=== PATIENT | male | born 1950 | race Caucasian/White ===

== ENCOUNTER 2016-10-05 12:42 | Inpatient (IN) | payer MEDICARE, OTHER ==
[~2016-10-05] VITALS: Ht 200.7 cm; Wt 108.2 kg
[2016-10-05] VITALS (36 sets, daily range): BP systolic 102–175; BP diastolic 61–124; PULSE 51–130; RESP 13–33; TEMP 97.5–98.1; O2SAT 96–99
[~2016-10-05 12:42] MED LIST: ATOR40TA PO; DABI150 PO; GLUC1000 PO; HYDR-4197; LOSA100T PO; MELO15; METO50TA PO; NORC10TA2 PO; PANT40IN3 PO; XANA0.5T PO
--- NOTE | 2016-10-05 13:25 | PD ---
HPI Chief Complaint: Cardiac Complaint Time Seen by Provider: 13:07 Travel History International Travel<30 days: No Contact w/Intl Traveler<30days: No Traveled to known affect area: No History of Present Illness HPI This is a 66-year-old male who has a history of atrial fibrillation who presents to the emergency department with 2 weeks of increasing shortness of breath and increased lower extremity swelling. The patient reports that he usually is able to walk 6 blocks but now can't walk across his house without getting out of breath. He's been having more trouble sleeping at night due to shortness of breath. He says his legs are increasingly swollen. He's had a productive cough with clear sputum. His symptoms have been moderate, worsening , and constant. He saw Dr. Gavin his lamp stack developer today who sent him to the emergency department for evaluation. The patient doesn't take any diuretics and is on 50 mg twice a day for rate control for his atrial fibrillation. PFSH Past Medical History Arthritis: Yes Autoimmune Disease: No Anxiety: Yes Heart Rhythm Problems: Yes (This visit) Cardiovascular Problems: No High Cholesterol: Yes Endocrine: No Genitourinary: No Immune Disorder: No Musculoskeletal: Yes (pinched nerves, degenerative changes. ) Reproductive: Yes Respiratory: No Past Surgical History Abdominal Surgery: No Cardiac Surgery: No Endocrine Surgery: No Eye Surgery: Yes (right eye surgery) Genitourinary Surgery: No Gynecologic Surgery: No Oral Surgery: Yes (implants) Thoracic Surgery: No Social History Alcohol Use: No Tobacco Use: Yes (2ppd) Substance Use: No Allergies-Medications (Allergen,Severity, Reaction): Coded Allergies: No Known Allergies (Unverified , 10/05/16) Reported Meds & Prescriptions Reported Meds & Active Scripts Active Reported Vitamin D-3 (Cholecalciferol) 1,000 Unit Tab 2,000 Units PO HS Pradaxa (Dabigatran) 150 Mg Cap 150 Mg PO BID Pantoprazole (Pantoprazole Sodium) 40 Mg Tab 40 Mg PO DAILY Metoprolol Tartrate 50 Mg Tab 50 Mg PO BID Metformin (Metformin HCl) 850 Mg Tab 850 Mg PO BIDPC With meals Losartan (Losartan Potassium) 100 Mg Tab 100 Mg PO DAILY Hydrocodone-Acetaminophen 10-325 mg Tab 1 Tab PO Q6H PRN Atorvastatin (Atorvastatin Calcium) 40 Mg Tab 40 Mg PO HS Alprazolam 0.5 Mg Tab 0.5 Mg PO TID PRN Review of Systems Except as stated in HPI: all other systems reviewed are Neg Physical Exam Narrative GENERAL:Well appearing, no acute distress SKIN: Warm and dry. HEAD: Atraumatic. Normocephalic. EYES: Pupils equal and round. No injection or drainage. ENT: Moist mucous membranes. NECK: Trachea midline. Jugular venous distention. CARDIOVASCULAR: Regular rate and rhythm. No murmur appreciated. 2+ bilateral lower extremity pitting edema. RESPIRATORY: Clear to auscultation. Breath sounds equal bilaterally. GASTROINTESTINAL: Abdomen soft, non-tender, nondistended. MUSCULOSKELETAL: No obvious deformities. NEUROLOGICAL: Awake and alert. No obvious cranial nerve deficits. Moving all extremities. PSYCHIATRIC: Appropriate mood and affect; insight and judgment normal. Data Data Last Documented VS Vital Signs Date Time Temp Pulse Resp B/P Pulse Ox O2 Delivery O2 Flow Rate FiO2 10/05/16 13:44 106 20 99 Room Air 10/05/16 13:01 98.1 132/90 Orders Complete Blood Count With Diff (10/05/16 13:22) Comprehensive Metabolic Panel (10/05/16 13:22) B-Type Natriuretic Peptide (10/05/16 13:22) Act Partial Throm Time (Ptt) (10/05/16 13:22) Prothrombin Time / Inr (Pt) (10/05/16 13:22) Troponin I (10/05/16 13:22) Iv Access Insert/Monitor (10/05/16 13:22) Ecg Monitoring (10/05/16 13:22) Oximetry (10/05/16 13:22) Oxygen Administration (10/05/16 13:22) Chest, Single Ap (10/05/16 13:22) Sodium Chloride 0.9% Flush (Ns Flush) (10/05/16 13:30) Furosemide Inj (Lasix Inj) (10/05/16 13:30) Diltiazem Inj (Cardizem Inj) (10/05/16 13:30) Diltiazem (Cardizem) (10/05/16 14:45) Vital Signs (Adult) Q15MX4,Q4H (10/05/16 14:44) Deck Specialist / Telemetry JULIANNA.Q8H (10/05/16 14:44) Cardiac Rhythm JULIANNA.Q8H (10/05/16 14:44) ^ Notify Dr: Other (10/05/16 14:44) Diltiazem Inj (Cardizem Inj) (10/05/16 14:45) Admit Order (Ed Use Only) (10/05/16 ) Electrocardiogram (10/05/16 13:07) Labs Laboratory Tests Test 10/05/16 13:10 White Blood Count 9.1 TH/MM3 Red Blood Count 5.23 MIL/MM3 Hemoglobin 14.9 GM/DL Hematocrit 45.9 % Mean Corpuscular Volume 87.9 FL Mean Corpuscular Hemoglobin 28.6 PG Mean Corpuscular Hemoglobin 32.5 % Concent Red Cell Distribution Width 16.9 % Platelet Count 206 TH/MM3 Mean Platelet Volume 9.3 FL Neutrophils (%) (Auto) 66.0 % Lymphocytes (%) (Auto) 27.3 % Monocytes (%) (Auto) 5.2 % Eosinophils (%) (Auto) 1.0 % Basophils (%) (Auto) 0.5 % Neutrophils # (Auto) 6.0 TH/MM3 Lymphocytes # (Auto) 2.5 TH/MM3 Monocytes # (Auto) 0.5 TH/MM3 Eosinophils # (Auto) 0.1 TH/MM3 Basophils # (Auto) 0.0 TH/MM3 CBC Comment DIFF FINAL Differential Comment Prothrombin Time 15.4 SEC Prothromb Time International 1.4 RATIO Ratio Activated Partial 44.9 SEC Thromboplast Time Sodium Level 141 MEQ/L Potassium Level 4.2 MEQ/L Chloride Level 106 MEQ/L Carbon Dioxide Level 24.7 MEQ/L Anion Gap 10 MEQ/L Blood Urea Nitrogen 26 MG/DL Creatinine 1.50 MG/DL Estimat Glomerular Filtration 47 ML/MIN Rate Random Glucose 102 MG/DL Calcium Level 8.8 MG/DL Total Bilirubin 1.1 MG/DL Aspartate Amino Transf 26 U/L (AST/SGOT) Alanine Aminotransferase 37 U/L (ALT/SGPT) Alkaline Phosphatase 154 U/L Troponin I 0.03 NG/ML B-Type Natriuretic Peptide 959 PG/ML Total Protein 6.8 GM/DL Albumin 3.5 GM/DL MDM Medical Decision Making Medical Screen Exam Complete: Yes Emergency Medical Condition: Yes Interpretation(s) EKG: Atrial fibrillation with rapid ventricular response afebrile, tachycardic, normotensive no leukocytosis renal insufficiency troponin .03 bnp 959 Last 24 hours Impressions Chest X-Ray 10/05/16 1322 Signed Impressions: Service Date/Time: Wednesday, October 05, 2016 13:28 - CONCLUSION: Congestion and bibasilar airspace disease. Mild cardiomegaly. Wilbert Manning MD Differential Diagnosis atrial fibrillation with rvr, volume overload, myocardial infarction, pneumonia , sepsis, congestive heart failure Narrative Course This is a 66 year old male with a history of atrial fibrillation who presents to the emergency department with increasing shortness of breath and volume overload. Pt. was placed on a monitor and an IV was established. Labs were obtained which demonstrate mild renal insufficiency and congestive heart failure. CXR demonstrates volume overload. Pt. was given IV diltiazem and his heart rate improved. He was given 40 mg IV of Lasix and diuresed appropriately. Pt. will be admitted for continued rate control and diuresis. Physician Communication Physician Communication Discussed with Dr. Navarro Diagnosis Primary Impression: Atrial fibrillation with rapid ventricular response Additional Impression: Congestive heart failure Qualified Code: I50.9 - Acute on chronic congestive heart failure, unspecified congestive heart failure type Admitting Information Admitting Physician Requests: Admit Yazmin Hamm MD Oct 05, 2016 13:25
[2016-10-05] MEDS ORDERED: DILTIAZEM HCL 25 MG/5 ML VIAL IV ONE (13:30)
[2016-10-05] MEDS ORDERED: FUROSEMIDE 40 MG/4 ML VIAL IV PUSH ONE (13:30)
[2016-10-05] MEDS ORDERED: SODIUM CHLORIDE 0.9% FLUSH 5 ML FLUSH IVF PRN (13:30)
[2016-10-05] MEDS ORDERED: HYDR-3583 PO (13:44)
[2016-10-05] MEDS ORDERED: METO50TA PO (13:44)
[2016-10-05] MEDS ORDERED: VITA10003 PO (13:44)
[2016-10-05] MEDS ORDERED: LOSA100T PO (13:44)
[2016-10-05] MEDS ORDERED: ATOR40TA16 PO (13:44)
[2016-10-05] MEDS ORDERED: PRAD150C PO (13:44)
[2016-10-05] MEDS ORDERED: METF850T PO (13:44)
[2016-10-05] MEDS ORDERED: PANT40TA3 PO (13:44)
[2016-10-05] MEDS ORDERED: ALPR0.5T3 PO (13:44)
[2016-10-05 13:46] LABS: BASOPHIL % 0.5 % (0.0-2.0); EOSINOPHIL # 0.1 TH/MM3 (0-0.4); HEMATOCRIT 45.9 % (39.0-51.0); HEMO FLAGS DIFF FINAL; LYMPH % 27.3 % (9.0-44.0); LYMPHOCYTE # 2.5 TH/MM3 (1.0-4.8); MEAN CELL VOLUME 87.9 FL (80.0-100.0); MEAN CORPUSCULAR HEMOGLOBIN 28.6 PG (27.0-34.0); MEAN CORPUSCULAR HGB CONC 32.5 % (32.0-36.0); MONO % 5.2 % (0.0-8.0); PLATELET COUNT 206 TH/MM3 (150-450); RED BLOOD COUNT 5.23 MIL/MM3 (4.50-5.90); RED CELL DISTRIBUTION WIDTH 16.9 % (11.6-17.2); WHITE BLOOD COUNT 9.1 TH/MM3 (4.0-11.0)
--- NOTE | 2016-10-05 13:46 | RADHPO ---
EXAM DATE/TIME: 10/05/2016 13:28 [place] COMPARISON: CHEST SINGLE AP, April 18, 2016, 23:14. INDICATIONS : Short of breath MEDICAL HISTORY : None. SURGICAL HISTORY : None. ENCOUNTER: Initial ACUITY: 3 days PAIN SCORE: 3/10 LOCATION: Bilateral chest FINDINGS: Interstitial vascular prominence is identified. There is mild bibasilar airspace disease. Heart is moderately enlarged. CONCLUSION: Congestion and bibasilar airspace disease. Mild cardiomegaly. Wilbert Manning MD on October 05, 2016 at 13:38 Board Certified Radiologist. This report was verified electronically.
[2016-10-05 13:57] LABS: CHLORIDE 106 MEQ/L (98-107); POTASSIUM 4.2 MEQ/L (3.5-5.1); SODIUM (NA) 141 MEQ/L (136-145)
[2016-10-05 14:01] LABS: ANION GAP 10 MEQ/L (5-15); APTT (PATIENT) 44.9 SEC (24.3-30.1); BICARBONATE 24.7 MEQ/L (21.0-32.0); BLOOD UREA NITROGEN 26 MG/DL (7-18); INTERNATIONAL NORMALIZED RATIO 1.4 RATIO; PROTHROMBIN TIME - PATIENT 15.4 SEC (9.8-11.6)
[2016-10-05 14:04] LABS: ALT (GPT) 37 U/L (12-78); AST (GOT) 26 U/L (15-37); GLOMERULAR FILTRATION RATE 47 ML/MIN (>89)
[2016-10-05 14:06] LABS: TOTAL BILIRUBIN ADULT 1.1 MG/DL (0.2-1.0)
[2016-10-05 14:07] LABS: ALKALINE PHOSPHATASE 154 U/L (45-117)
[2016-10-05] MEDS ORDERED: DILTIAZEM HCL 30 MG TAB PO ONE (14:45)
[2016-10-05] MEDS ORDERED: DILTIAZEM INJ 125 MG in SODIUM CHLORIDE 0.9% INJ 100 ML IV SCH ×2 (14:45→16:30)
[2016-10-05] MEDS ORDERED: GLUCAGON 1 MG/ML VIAL OTHER PRN (16:30)
[2016-10-05] MEDS ORDERED: DEXTROSE 50% IN WATER 50 ML VIAL(D50) IV PUSH PRN (16:30)
[2016-10-05] MEDS ORDERED: SODIUM CHLORIDE 0.9% FLUSH 5 ML FLUSH FLUSH PRN (16:30)
--- NOTE | 2016-10-05 16:47 | HHI.HP ---
[facility] No Primary Care Physician Admission Diagnosis atrial fibrillation with rvr Diagnoses: (1) Atrial fibrillation with rapid ventricular response (2) Acute on chronic diastolic (congestive) heart failure Chief Complaint: Shortness of breath Travel History International Travel<30 Days: No Contact w/Intl Traveler <30 Da: No Traveled to Known Affected Are: No History of Present Illness 66-year-old male with a history of hypertension, A. fib, hyperlipidemia, and diabetes presented to the ED for evaluation of worsening symptoms of shortness of breath associated with bilateral lower extremity swelling. Patient was seen by his wireline operator today and was advised to seek medical attention to the ED. He reported that his symptoms started 2 weeks ago and was seen at urgent care she was prescribed Z-Matt and steroid dose for cold which he completed however had no improvement. He had at that time productive cough with clear sputum but no febrile episode. Patient smokes one pack per day has been smoking for the past 55 years. Currently denies any GI bleed, hemoptysis or hematuria. Review of Systems Other 12 systems reviewed and are negative except for the ones mentioned in history of present illness Past Family Social History Past Medical History Hypertension A. fib Hyperlipidemia Diabetes CHF Past Surgical History Hand surgery Elbow surgery Shoulder surgery Bilateral knee surgery Reported Medications Vitamin D-3 (Cholecalciferol) 1,000 Unit Tab 2,000 Units PO HS Pradaxa (Dabigatran) 150 Mg Cap 150 Mg PO BID Pantoprazole (Pantoprazole Sodium) 40 Mg Tab 40 Mg PO DAILY Metoprolol Tartrate 50 Mg Tab 50 Mg PO BID Metformin (Metformin HCl) 850 Mg Tab 850 Mg PO BIDPC With meals Losartan (Losartan Potassium) 100 Mg Tab 100 Mg PO DAILY Hydrocodone-Acetaminophen 10-325 mg Tab 1 Tab PO Q6H PRN Atorvastatin (Atorvastatin Calcium) 40 Mg Tab 40 Mg PO HS Alprazolam 0.5 Mg Tab 0.5 Mg PO TID PRN Allergies: Coded Allergies: No Known Allergies (Unverified , 10/05/16) Family History Family history of cancers Social History Tobacco use: 2-3 ppd Alcohol use: History of abuse, denies current use Illicit drug use: Marijuana use Physical Exam Vital Signs Vital Signs Date Time Temp Pulse Resp B/P Pulse Ox O2 Delivery O2 Flow Rate FiO2 10/05/16 15:06 115 20 102/105 97 Room Air 10/05/16 13:44 106 20 99 Room Air 10/05/16 13:44 99 Room Air 10/05/16 13:44 20 99 Room Air 10/05/16 13:01 98.1 130 18 132/90 99 Physical Exam GENERAL: This is a well-nourished, well-developed patient, in no apparent distress. SKIN: No rashes, ecchymoses or lesions. Cool and dry. HEAD: Atraumatic. Normocephalic. No temporal or scalp tenderness. EYES: Pupils equal round and reactive. Extraocular motions intact. No scleral icterus. No injection or drainage. ENT: Nose without bleeding, purulent drainage or septal hematoma. Throat without erythema, tonsillar hypertrophy or exudate. Uvula midline. Airway patent. NECK: Trachea midline. No JVD or lymphadenopathy. Supple, nontender, no meningeal signs. CARDIOVASCULAR: Irregular Regular rate and rhythm without murmurs, gallops, or rubs. RESPIRATORY: Clear to auscultation. Breath sounds equal bilaterally. No wheezes , rales, or rhonchi. GASTROINTESTINAL: Abdomen soft, non-tender, nondistended. No hepato-splenomegaly , or palpable masses. No guarding. MUSCULOSKELETAL: Extremities without clubbing, cyanosis; +1 edema BLE. No joint tenderness, effusion, or edema noted. No calf tenderness. Negative Homans sign bilaterally. NEUROLOGICAL: Awake and alert. Cranial nerves II through XII intact. Motor and sensory grossly within normal limits. Five out of 5 muscle strength in all muscle groups. Normal speech. Laboratory Laboratory Tests Test 10/05/16 13:10 White Blood Count 9.1 Red Blood Count 5.23 Hemoglobin 14.9 Hematocrit 45.9 Mean Corpuscular Volume 87.9 Mean Corpuscular Hemoglobin 28.6 Mean Corpuscular Hemoglobin 32.5 Concent Red Cell Distribution Width 16.9 Platelet Count 206 Mean Platelet Volume 9.3 Neutrophils (%) (Auto) 66.0 Lymphocytes (%) (Auto) 27.3 Monocytes (%) (Auto) 5.2 Eosinophils (%) (Auto) 1.0 Basophils (%) (Auto) 0.5 Neutrophils # (Auto) 6.0 Lymphocytes # (Auto) 2.5 Monocytes # (Auto) 0.5 Eosinophils # (Auto) 0.1 Basophils # (Auto) 0.0 CBC Comment DIFF FINAL Differential Comment Prothrombin Time 15.4 Prothromb Time International 1.4 Ratio Activated Partial 44.9 Thromboplast Time Sodium Level 141 Potassium Level 4.2 Chloride Level 106 Carbon Dioxide Level 24.7 Anion Gap 10 Blood Urea Nitrogen 26 Creatinine 1.50 Estimat Glomerular Filtration 47 Rate Random Glucose 102 Calcium Level 8.8 Total Bilirubin 1.1 Aspartate Amino Transf 26 (AST/SGOT) Alanine Aminotransferase 37 (ALT/SGPT) Alkaline Phosphatase 154 Troponin I 0.03 B-Type Natriuretic Peptide 959 Total Protein 6.8 Albumin 3.5 Result Diagram: 10/05/16 1310 10/05/16 1310 Imaging Last Impressions Chest X-Ray 10/05/16 1322 Signed Impressions: Service Date/Time: Wednesday, October 05, 2016 13:28 - CONCLUSION: Congestion and bibasilar airspace disease. Mild cardiomegaly. Wilbert Manning MD Assessment and Plan Problem List: (1) Atrial fibrillation with rapid ventricular response ICD Code: I48.91 Status: Acute (2) Acute on chronic diastolic (congestive) heart failure ICD Code: I50.33 Status: Acute Assessment and Plan 66-year-old male with Atrial fibrillation with rapid ventricular response: Initial cardiac enzymes negative, continue ACS ruled out per protocol. Currently on Cardizem drip pending evaluation from cardiology. Last 2-D echo with EF 50-55% (04/19/16) pending repeat 2-D echo. Resume Pradaxa and continue treatment for hypothyroidism. Will admit patient ICU Acute on chronic diastolic CHF: BNP 959, start diuretic Lasix 40 mg IV twice a day any further evaluation from cardiology.Last 2-D echo with EF 50-55% (04/19/16 ) pending repeat 2-D echo. CHF education, strict I's and O's Hypertension, hyperlipidemia, anxiety: Resume outpatient medications Diabetes type 2: Last A1c 5.7, repeat HgA1c and resume oral hypoglycemic agent and start Loestrin sliding scale Chest x-ray finding of bibasilar airspace disease: Currently afebrile and WBC wnl; patient completed Z-Pack as well as Medrol dose pack therefore will hold on starting any antibiotic. Reassess clinical course in a.m. DVT prophylaxis: Pradaxa Code Status Full code Discussed Condition With Patient, ED physician Physician Certification 2 Midnight Certification Type: Admission for Inpatient Services Order for Inpatient Services The services are ordered in accordance with Medicare regulations or non- Medicare payer requirements, as applicable. In the case of services not specified as inpatient-only, they are appropriately provided as inpatient services in accordance with the 2-midnight benchmark. Estimated LOS (days): 2 days is the estimated time the patient will need to remain in the hospital, assuming treatment plan goals are met and no additional complications. Post-Hospital Plan: Not yet determined Deo Navarro MD Oct 05, 2016 16:47
[2016-10-05] MEDS: POTASSIUM CHLORIDE 20 MEQ CONTROLLED RELEASE TAB PO SCH (17:48)
[2016-10-05] MEDS: metFORMIN HCL 850 MG TAB PO SCH (17:48)
[2016-10-05] MEDS: FUROSEMIDE 40 MG/4 ML VIAL IV PUSH SCH (17:48)
[2016-10-05] MEDS: ALPRAZolam 0.5 MG TAB PO PRN (17:52)
[2016-10-05] MEDS: NICOTINE 21 MG/24 HR PATCH TD SCH (17:53)
[2016-10-05] MEDS: METOPROLOL TARTRATE 50 MG TAB PO SCH (20:06)
[2016-10-05] MEDS: ATORVASTATIN 40 MG TAB PO SCH (20:07)
[2016-10-05] MEDS: DABIGATRAN ETEXILATE 150 MG CAP PO SCH (20:07)
[2016-10-05] MEDS: SODIUM CHLORIDE 0.9% FLUSH 5 ML FLUSH FLUSH SCH (20:07)
[2016-10-05] MEDS: INSULIN ASPART SUPPLEMENTAL SCALE SQ SCH (20:09)
[2016-10-05] MEDS ORDERED: ACETAMINOPHEN/HYDROcodone 325 MG/10 MG TAB PO ONE (20:45)
[2016-10-06] VITALS (18 sets, daily range): BP systolic 108–142; BP diastolic 63–98; PULSE 54–146; RESP 12–28; TEMP 97–97.8; O2SAT 95–98
[2016-10-06 05:22] LABS: HEMATOCRIT 44.4 % (39.0-51.0); MEAN CELL VOLUME 88.6 FL (80.0-100.0); MEAN CORPUSCULAR HEMOGLOBIN 28.1 PG (27.0-34.0); MEAN CORPUSCULAR HGB CONC 31.7 % (32.0-36.0); PLATELET COUNT 186 TH/MM3 (150-450); RED BLOOD COUNT 5.01 MIL/MM3 (4.50-5.90); RED CELL DISTRIBUTION WIDTH 16.7 % (11.6-17.2); WHITE BLOOD COUNT 8.2 TH/MM3 (4.0-11.0)
[2016-10-06 05:34] LABS: POTASSIUM 3.6 MEQ/L (3.5-5.1)
[2016-10-06 05:35] LABS: REVIEW FLAG FINAL
[2016-10-06] MEDS: INSULIN ASPART SUPPLEMENTAL SCALE SQ SCH ×4 (06:07→21:00)
[2016-10-06] MEDS: ACETAMINOPHEN/HYDROcodone 325 MG/10 MG TAB PO PRN ×3 (09:24→22:00)
[2016-10-06] MEDS: SODIUM CHLORIDE 0.9% FLUSH 5 ML FLUSH FLUSH SCH ×2 (09:27→20:59)
[2016-10-06] MEDS: FUROSEMIDE 40 MG/4 ML VIAL IV PUSH SCH ×2 (09:28→17:38)
[2016-10-06] MEDS: POTASSIUM CHLORIDE 20 MEQ CONTROLLED RELEASE TAB PO SCH ×2 (09:28→17:38)
[2016-10-06] MEDS: NICOTINE 21 MG/24 HR PATCH TD SCH (09:28)
[2016-10-06] MEDS: metFORMIN HCL 850 MG TAB PO SCH ×2 (09:28→17:38)
[2016-10-06] MEDS: DABIGATRAN ETEXILATE 150 MG CAP PO SCH ×2 (09:29→20:59)
[2016-10-06] MEDS: PANTOPRAZOLE SOD 40 MG DELAYED RELEASE TAB PO SCH (09:29)
[2016-10-06] MEDS: METOPROLOL TARTRATE 50 MG TAB PO SCH ×2 (09:29→21:59)
[2016-10-06] MEDS: LOSARTAN 50 MG TAB PO SCH (09:29)
[2016-10-06] MEDS: ALPRAZolam 0.5 MG TAB PO PRN ×2 (09:45→20:59)
[2016-10-06] MEDS ORDERED: PNEUMOCOCCAL POLYVALENT INJ 25 MCG/0.5 ML SYR IM ONE (10:00)
--- NOTE | 2016-10-06 12:47 | MB ---
cc: RADHA GAVIN MD DATE OF CONSULTATION: 10/06/2016 REASON FOR CONSULTATION Atrial fibrillation and CHF. HISTORY OF PRESENT ILLNESS Mr. Triana is a 66-year-old man who does have a history of atrial fibrillation and non-ST elevation DE. The patient had 2 weeks ago some shortness of breath and cough. He was treated at an urgent care and prescribed a Z-Matt and some steroids for cold/ bronchitis. He initially started to improve but then has had progressive symptoms of edema and shortness of breath. He does continue to smoke. The patient reports that he has had to sleep sitting up. The patient was seen by me in the office yesterday with progressive symptoms. He was found to be in atrial fibrillation, RVR and had marked edema. He was thus referred to the emergency room. PAST MEDICAL HISTORY Past medical history significant for: 1. Hypertension. 2. Hyperlipidemia. 3. Diabetes. 4. Atrial fibrillation. 5. CHF. OUTPATIENT MEDICATIONS Included: 1. Pradaxa. 2. Metoprolol. 3. Metformin. 4. Losartan. 5. Atorvastatin. 6. Alprazolam. ALLERGIES NO KNOWN DRUG ALLERGIES. FAMILY HISTORY Negative for CAD. SOCIAL HISTORY The patient does continue to smoke two packs a day. REVIEW OF SYSTEMS Except as mentioned in the HPI, all 12 systems are negative. PHYSICAL EXAMINATION VITAL SIGNS: Currently are 80, 20, 142/90. GENERAL: He is a well-appearing man who is in no apparent distress. NECK: His neck is free from JVD sitting. LUNGS: The lungs have bibasilar rales. CARDIOVASCULAR: He has an irregularly, irregular rhythm. No rubs or gallops appreciated. ABDOMEN: The abdomen is soft. EXTREMITIES: 1+ edema. LABORATORY FINDINGS Significant for a creatinine of 1.4. Serial troponins of 0.03/ 0.02/0.02. BNP is 959. CHEST X-RAY Shows congestion and bibasilar air space disease. EKG Shows atrial fibrillation. IMPRESSION Atrial fibrillation - the patient did have some RVR. His rate is improved essentially on his outpatient medications. He does get a bit tachycardic with standing and ambulating but then the heart rate responds pretty quickly to come back down. I suspect that his high heart rate was related to his decompensated CHF. At this point I would continue him with the IV Lasix as he is responding nicely to this and still has a fair amount of both edema and basilar rales. I would continue the patient on the Pradaxa for a CHADS vasc score of 4. Cardiomyopathy - on the patient's last visit his EF was 40% by nuc and 50% by echo. He is responding today like he does have a systolic failure. In any case an echo is pending and we will continue him with his present medications. CHF - the patient is having an acute on chronic presentation. We will continue with medical management. Of note, he did have a nonischemic nuclear stress test in the fall. Radha Gavin M.D. [place]/MICKI /12:13 PM /12:29 PM
--- NOTE | 2016-10-06 13:04 | EC ---
Study Study Date:10/06/2016 STUDY CONCLUSIONS SUMMARY - Left ventricle: The cavity size was dilated. Wall thickness was increased increased in a pattern of mild to moderate LVH. Systolic function was moderately reduced by visual assessment. The estimated ejection fraction was in the range of 35% to 45%. Wall motion was normal; there were no regional wall motion abnormalities. - Aortic valve: Mild regurgitation. Valve area: 2.51cm^2 (Vmax). - Left atrium: The atrium was mildly dilated. - Right atrium: The atrium was mildly dilated. - Tricuspid valve: Mild regurgitation. If LV function is below 40, please consider prescribing an ACEI or ARB or document rationale for non-use. PROCEDURE DATA STUDY STATUS: Elective. Procedure: Transthoracic echocardiography. Image quality was good. Scanning was performed from the parasternal, apical, and subcostal acoustic windows. Study completion: The patient tolerated the procedure well. Transthoracic echocardiography. M-mode, complete 2D, complete spectral Doppler, and color Doppler. Height: Height: 79in. Weight: Weight: 278.4lb. Body mass index: BMI: 31.4kg/m^2. Body surface area: BSA: 2.62m^2. Patient status: Inpatient. CARDIAC ANATOMY LEFT VENTRICLE: Poorly visualized. The cavity size was dilated. Wall thickness was increased increased in a pattern of mild to moderate LVH. Systolic function was moderately reduced by visual assessment. The estimated ejection fraction was in the range of 35% to 45%. Wall motion was normal; there were no regional wall motion abnormalities. AORTIC VALVE: Trileaflet; normal thickness leaflets. Doppler: Transvalvular velocity was within the normal range. There was no stenosis. Mild regurgitation. Valve area: 2.51cm^2 (Vmax). Indexed valve area: 0.96cm^2/m^2 (Vmax). AORTA: Aortic root: The aortic root was normal in size. MITRAL VALVE: Structurally normal valve. Doppler: Transvalvular velocity was within the normal range. There was no evidence for stenosis. No regurgitation. Valve area by pressure half-time: 5cm^2. Indexed valve area by pressure half-time: 1.91cm^2/m^2. LEFT ATRIUM: The atrium was mildly dilated. RIGHT VENTRICLE: The cavity size was at the upper limits of normal. Wall thickness was normal. PULMONIC VALVE: Doppler: Transvalvular velocity was within the normal range. There was no evidence for stenosis. No regurgitation. TRICUSPID VALVE: Structurally normal valve. Doppler: Transvalvular velocity was within the normal range. Mild regurgitation. Peak gradient: 30mm Hg (D). PULMONARY ARTERY: The main pulmonary artery was normal-sized. Systolic pressure was within the normal range. RIGHT ATRIUM: The atrium was mildly dilated. PERICARDIUM: There was no pericardial effusion. SYSTEMIC VEINS: Inferior vena cava: The vessel was normal in size. Patient weight: 278.4lb _Ejection fraction:_ 65-75% _Fractional shortening:_ 32% up to 5Kg 5-11.5Kg 11.6-22.9Kg 23-45Kg 45-57Kg Aortic Root 7-13 <17 13-22 17-27 17-27 LA diam 6-13 <23 24-38 33-47 37-40 RVID 10-17 7-15 7-15 7-18 8-17 LVIDd 12-22 <32 24-38 33-47 37-40 LVPW 2-4 3-6 5-7 6-8 7-8 IVS 2-4 3-6 5-7 6-8 7-8 BASIC MEASUREMENTS ADULT NORMAL Left ventricle LV internal dimension, ED, chordal *16.9 mm 43-52 level, PLAX LV internal dimension, ES, chordal *46.9 mm 23-38 level, PLAX Fractional shortening, chordal level, 178 % >29 PLAX LV posterior wall thickness, ED 16.8 mm IVS/LVPW ratio, ED 0.99 <1.3 Volume, ED, MOD, 1-plane 129 ml Volume, ES, MOD, 1-plane 90 ml Ejection fraction, MOD, 1-plane 30 % Stroke volume, MOD, 1-plane 39 ml Volume index, ED, MOD, 1-plane 49 ml/m^2 Volume index, ES, MOD, 1-plane 34 ml/m^2 Stroke index, MOD, 1-plane 14.9 ml/m^2 Ventricular septum Septal thickness, ED 16.7 mm Aortic valve Leaflet separation 21 mm 15-26 Left atrium Anterior-posterior dimension 40 mm Anterior-posterior dimension index 1.53 cm/m^2 <2.2 Right ventricle RV internal dimension, ED, PLAX 32.1 mm 19-38 BASIC MEASUREMENTS ADULT NORMAL Aortic valve Leaflet separation 21 mm 15-26 Aorta Root diameter, ED 36 mm 20-37 DOPPLER MEASUREMENTS ADULT NORMAL Aortic valve Peak velocity, S 130 cm/s Valve area, Vmax 2.51 cm^2 Valve area index, Vmax 0.96 cm^2/m^2 Regurgitant velocity, ED 407 cm/s Regurgitant deceleration 1930 cm/s^2 Regurgitant pressure half-time 618 ms Regurgitant gradient, ED 66 mm Hg Mitral valve Peak E-wave velocity 65.6 cm/s Peak A-wave velocity 59.7 cm/s Pressure half-time 44 ms Peak E/A ratio 1.1 Valve area, pressure half-time 5 cm^2 Valve area index, pressure half-time 1.91 cm^2/m^2 Tricuspid valve Peak gradient, D 30 mm Hg Maximal inflow velocity 274 cm/s Systemic veins Estimated CVP 10 mm Hg Pulmonic valve Peak velocity, S 82.8 cm/s LEGEND: Mean values are shown as u=mean value. Asterisk (*) peterson values outside specified normal range. Prepared and signed by Enrico Frost [id number]
--- NOTE | 2016-10-06 14:07 | EKG ---
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
--- NOTE | 2016-10-06 15:03 | HHI.PR ---
Subjective Remarks Patient sitting on the chair, he denies pain at the moment but he stated "I will have it soon "when I said where he said his neck, his elbows, his knees, and his hips, obvious with his chronic pain, patient denied any chest tightness , short of breath, lightheadedness or dizziness He was just seen by Dr. Gavin and he told me she wasn't happy about him drinking large amount of green tea, he asked me if fluid retention is due to metformin, totally ignoring the fact that he is drinking large cans of ice tea Is cussed with the nurse patient still having tachycardia with mobilization Objective Vitals Vital Signs Date Time Temp Pulse Resp B/P Pulse Ox O2 Delivery O2 Flow Rate FiO2 10/06/16 12:00 90 28 123/92 10/06/16 10:30 97.6 140 28 142/90 10/06/16 10:00 146 28 10/06/16 08:00 114 10/06/16 07:30 98 15 134/89 10/06/16 03:35 97.8 66 12 136/89 97 10/06/16 01:45 64 13 121/74 10/06/16 01:30 70 17 126/67 10/06/16 01:15 72 22 138/98 10/06/16 01:00 60 12 117/69 10/06/16 00:45 54 13 108/63 10/06/16 00:30 62 18 113/66 10/06/16 00:15 58 12 116/63 10/06/16 00:00 68 20 118/72 98 10/05/16 23:30 60 24 112/88 10/05/16 23:15 54 19 112/68 10/05/16 23:00 51 10/05/16 23:00 56 17 103/62 10/05/16 22:45 58 13 107/67 10/05/16 22:30 60 22 112/71 10/05/16 22:15 76 19 138/96 10/05/16 22:00 60 24 115/62 10/05/16 21:45 60 28 108/61 10/05/16 21:30 72 24 120/73 10/05/16 21:15 72 18 140/76 96 10/05/16 21:00 92 27 114/93 96 10/05/16 20:45 74 24 156/87 96 10/05/16 20:30 90 27 160/123 97 10/05/16 20:15 86 28 164/89 97 10/05/16 20:06 130 30 168/89 97 10/05/16 20:00 97.5 102 23 168/89 97 10/05/16 19:45 102 28 175/124 98 10/05/16 19:30 94 33 156/84 98 10/05/16 19:28 97 10/05/16 19:15 82 24 136/81 98 10/05/16 19:00 84 27 148/97 98 10/05/16 18:23 97 21 10/05/16 18:00 84 10/05/16 17:45 104 10/05/16 17:30 88 10/05/16 17:15 116 10/05/16 17:00 114 10/05/16 16:51 81 10/05/16 16:49 98 10/05/16 16:45 124 10/05/16 16:30 100 10/05/16 16:15 106 10/05/16 16:12 118 10/05/16 15:06 115 20 102/105 97 Room Air I/O 10/05/16 10/05/16 10/05/16 10/06/16 10/06/16 10/06/16 07:00 15:00 23:00 07:00 15:00 23:00 Intake Total 394 ml 720 ml 680 ml Output Total 4700 ml 1675 ml 1150 ml Balance -4306 ml -955 ml -470 ml Intake Oral 360 ml 720 ml 680 ml IV Total 34 ml 0 ml Output Urine Total 4700 ml 1675 ml 1150 ml # Bowel Movements 0 0 Result Diagram: 10/06/16 0427 10/06/16 0427 Objective Remarks GENERAL: This is a well-nourished, well-developed patient, in no apparent distress. CARDIOVASCULAR: Regular rate and irregular rhythm without murmurs, gallops, or rubs. RESPIRATORY: Clear to auscultation. Breath sounds equal bilaterally. No wheezes , rales, or rhonchi. GASTROINTESTINAL: Abdomen soft, non-tender, nondistended. Normal, active bowel sounds MUSCULOSKELETAL: Extremities without clubbing, cyanosis, or edema. NEURO: Alert & Oriented x4 to person, place, time, situation. Moves all ext x4 A/P Problem List: (1) Atrial fibrillation with rapid ventricular response ICD Code: I48.91 Status: Acute (2) Acute on chronic diastolic (congestive) heart failure ICD Code: I50.33 Status: Acute Assessment and Plan 66-year-old male with Atrial fibrillation with rapid ventricular response: Initial cardiac enzymes negative, continue ACS ruled out per protocol. Status post Cardizem drip , heart rate is controlled on Lopressor while resting however he goes above 100 on ambulation, appreciate cardiology consultation. Last 2-D echo with EF 50-55 % (04/19/16) pending repeat 2-D echo. Resume Pradaxa and continue treatment for hypothyroidism. Further recommendation per cardiology Acute on chronic diastolic CHF: BNP 959, Lasix 40 mg IV twice a day .Last 2-D echo with EF 50-55% (04/19/16) pending repeat 2-D echo. I reinforced CHF education, strict I's and O's fluid restriction 1500 cc of a Hypertension, hyperlipidemia, anxiety: Resume outpatient medications Diabetes type 2: Last A1c 5.7, repeat HgA1c and resume oral hypoglycemic agent and start ISS Chest x-ray showing congestion with bibasilar airspace disease: Currently afebrile and WBC wnl; patient completed Z-Pack as well as Medrol dose pack therefore will hold on starting any antibiotic. Reassess clinical course DVT prophylaxis: Lakshmi Zelaya MD Oct 06, 2016 15:03
[2016-10-06] MEDS: ATORVASTATIN 40 MG TAB PO SCH (20:59)
[2016-10-07] VITALS (9 sets, daily range): BP systolic 104–144; BP diastolic 60–87; PULSE 76–126; RESP 14–28; TEMP 97.2–97.7; O2SAT 94–97
[2016-10-07] MEDS: ACETAMINOPHEN/HYDROcodone 325 MG/10 MG TAB PO PRN ×3 (06:50→20:51)
[2016-10-07] MEDS: INSULIN ASPART SUPPLEMENTAL SCALE SQ SCH ×4 (06:50→20:51)
[2016-10-07] MEDS: ALPRAZolam 0.5 MG TAB PO PRN ×3 (06:50→20:51)
[2016-10-07] MEDS: POTASSIUM CHLORIDE 20 MEQ CONTROLLED RELEASE TAB PO SCH ×2 (08:26→17:50)
[2016-10-07] MEDS: PANTOPRAZOLE SOD 40 MG DELAYED RELEASE TAB PO SCH (08:26)
[2016-10-07] MEDS: SODIUM CHLORIDE 0.9% FLUSH 5 ML FLUSH FLUSH SCH ×2 (08:26→20:48)
[2016-10-07] MEDS: DABIGATRAN ETEXILATE 150 MG CAP PO SCH ×2 (08:26→20:51)
[2016-10-07] MEDS: LOSARTAN 50 MG TAB PO SCH (08:26)
[2016-10-07] MEDS: NICOTINE 21 MG/24 HR PATCH TD SCH (08:27)
[2016-10-07] MEDS: FUROSEMIDE 40 MG/4 ML VIAL IV PUSH SCH ×2 (08:27→17:51)
[2016-10-07] MEDS: METOPROLOL TARTRATE 50 MG TAB PO SCH ×2 (08:27→20:51)
[2016-10-07] MEDS: metFORMIN HCL 850 MG TAB PO SCH ×2 (08:32→17:50)
[2016-10-07] MEDS ORDERED: METOPROLOL TARTRATE 50 MG TAB PO SCH (09:00)
[2016-10-07] MEDS ORDERED: LOSARTAN 50 MG TAB PO SCH (09:00)
--- NOTE | 2016-10-07 10:11 | HHI.PR ---
Subjective Remarks Patient seen and examined today with Dr. Lundberg. Patient had multiple questions concerning fluid intake, wbif-lox-gyfucpi medication, travel recommendations. Patient's heart rates still very labile. We'll need to discuss with cardiology for further recommendations. Objective Vitals Vital Signs Date Time Temp Pulse Resp B/P Pulse Ox O2 Delivery O2 Flow Rate FiO2 10/07/16 07:40 97 21 10/07/16 04:00 97.5 78 16 109/87 94 10/07/16 00:00 97.7 102 14 144/82 94 10/07/16 00:00 114 10/06/16 23:00 18 10/06/16 20:00 97.4 112 21 117/93 98 10/06/16 19:47 96 10/06/16 15:55 108 10/06/16 15:46 97.0 102 25 108/72 95 10/06/16 12:00 95 10/06/16 12:00 90 28 123/92 10/06/16 10:30 97.6 140 28 142/90 10/06/16 10:00 146 28 I/O 10/06/16 10/06/16 10/06/16 10/07/16 10/07/16 10/07/16 07:00 15:00 23:00 07:00 15:00 23:00 Intake Total 720 ml 680 ml 1320 ml 0 ml Output Total 1675 ml 1150 ml 2725 ml 600 ml Balance -955 ml -470 ml -1405 ml -600 ml Intake Oral 720 ml 680 ml 1320 ml 0 ml IV Total 0 ml 0 ml Output Urine Total 1675 ml 1150 ml 2725 ml 600 ml # Bowel Movements 0 0 0 Result Diagram: 10/06/16 0427 10/06/16 0427 Objective Remarks GENERAL: Well-developed, well-nourished, in no acute distress. alert and orientated HEENT: Head is normocephalic without any lesions or masses noted. Facial features are symmetric. Eyes: Extraocular muscles are intact. Conjunctivae were clear. NECK: Supple without any masses. Trachea midline no deviation. No JVD, CARDIAC: Irregular rhythm, irregular rate. S1/S2 are heard. No murmurs gallops or rubs. LUNGS: Clear to auscultation bilaterally. No wheeze, rhonchi or rales. No use of accessory muscles on inspiration or expiration. ABDOMEN: Soft, nontender. Nondistended. Bowel sounds heard in all 4 quadrants. No organomegaly or masses. Negative rebound, negative guarding EXTREMITIES: No edema, pulses are equal bilaterally. No cyanosis or clubbing NEUROLOGY: Mood and affect appear appropriate. Cranial nerves II through XII grossly intact. Moving all extremities, speech is clear Urinary Catheter: No Vascular Central Line Catheter: No A/P Assessment and Plan Atrial fibrillation with rapid ventricular response: Cardiac enzymes negative, Status post Cardizem drip , heart rate is mildly controlled on Lopressor. [place] [address]. Cardiology consultation has been performed. Last 2-D echo with EF 50-55% (04/19/16). Repeat echocardiogram indicates systolic function was moderately reduced ejection fraction 3545 percent. Continue Pradaxa and continue treatment for hypothyroidism. Discussed with cardiology this morning. Patient's condition likely related to noncompliance. Cardiology and myself for counseled patient on his fluid intake. Cardiology recommended increasing to Lopressor 100 mg twice daily for better rate control. Acute on chronic systolic/diastolic congestive heart failure: BNP 959, change to Lasix 40 mg by mouth daily. I patient counseled extensively on fluid restriction. According to documentation patient has had close to 7.6 L negative fluid status. Counseled patient on compression stockings Hypertension, hyperlipidemia, anxiety: Losartan 100 mg was continued, after discussion with cardiology will decrease to losartan 25 mg because of the increase to Lopressor. Diabetes type 2: Last A1c 5.7, oral hypoglycemic agent was resumed, however patient is refusing at this time. Continue Accu-Cheks with sliding scale insulin. Patient has not required any insulin since being in the hospital. Chest x-ray showing congestion with bibasilar airspace disease: Currently afebrile and WBC wnl; patient completed Z-Pack as well as Medrol dose pack therefore will hold on starting any antibiotic. Reassess clinical course DVT prophylaxis: Pradaxa Written by Ashwin Delacruz PA-C, acting as scribe for Dr. Lundberg on 10/07/16 at 1045. The documentation accurately reflects the work and decisions performed face-to- face by Dr. Lundberg on 10/07/16 at 1045. Discharge Planning Discharge planning when heart rate controlled after medication adjustment. Could be as early as late this afternoon and hopefully by tomorrow morning Ashwin Delacruz Oct 07, 2016 10:11 Lakshmi Lundberg MD Oct 07, 2016 18:11
[2016-10-07] MEDS ORDERED: METOPROLOL TARTRATE 50 MG TAB PO ONE (12:00)
[2016-10-07] MEDS ORDERED: CALCIUM CARBONATE 500 MG CHEWABLE TAB CHEW PRN (14:00)
[2016-10-07] MEDS: ATORVASTATIN 40 MG TAB PO SCH (20:51)
[2016-10-08] VITALS: BP 92/55; PULSE 77; RESP 16; TEMP 97.2; O2SAT 94
[2016-10-08] MEDS: ALPRAZolam 0.5 MG TAB PO PRN ×2 (03:57→09:56)
[2016-10-08] MEDS: ACETAMINOPHEN/HYDROcodone 325 MG/10 MG TAB PO PRN ×2 (03:57→09:57)
[2016-10-08 04:00] VITALS: BP 119/75; PULSE 74; RESP 17; TEMP 97.8; O2SAT 94
[2016-10-08] MEDS: INSULIN ASPART SUPPLEMENTAL SCALE SQ SCH ×2 (05:33→11:00)
[2016-10-08 07:53] VITALS: BP 117/80; PULSE 98; RESP 18; TEMP 97.6; O2SAT 95
[2016-10-08 08:00] VITALS: PULSE 100
[2016-10-08] MEDS: DABIGATRAN ETEXILATE 150 MG CAP PO SCH (08:37)
[2016-10-08] MEDS: SODIUM CHLORIDE 0.9% FLUSH 5 ML FLUSH FLUSH SCH (08:37)
[2016-10-08] MEDS: POTASSIUM CHLORIDE 20 MEQ CONTROLLED RELEASE TAB PO SCH (08:38)
[2016-10-08] MEDS: metFORMIN HCL 850 MG TAB PO SCH (08:38)
[2016-10-08] MEDS: FUROSEMIDE 40 MG/4 ML VIAL IV PUSH SCH (08:38)
[2016-10-08] MEDS: PANTOPRAZOLE SOD 40 MG DELAYED RELEASE TAB PO SCH (08:38)
[2016-10-08] MEDS: METOPROLOL TARTRATE 50 MG TAB PO SCH (08:38)
[2016-10-08] MEDS: NICOTINE 21 MG/24 HR PATCH TD SCH (08:39)
[2016-10-08 08:47] VITALS: O2SAT 95
[2016-10-08] MEDS ORDERED: LOSARTAN 50 MG TAB PO SCH (09:00)
--- NOTE | 2016-10-08 09:14 | HHI.PR ---
Subjective Remarks Patient seen and examined today with Dr. Lundberg. Patient's heart rate has improved with the adjustment of medications. Review of telemetry indicates patient's heart rate averaging in the 80s except upon movement or eating it will go to 120. Patient denies any new complaints. Patient has multiple questions about where he should go if he starts developing cold symptoms again. Objective Vitals Vital Signs Date Time Temp Pulse Resp B/P Pulse Ox O2 Delivery O2 Flow Rate FiO2 10/08/16 08:47 95 21 10/08/16 04:00 97.8 74 17 119/75 94 10/08/16 04:00 74 10/08/16 00:00 77 10/08/16 00:00 97.2 77 16 92/55 94 10/07/16 20:37 95 21 10/07/16 20:00 121 10/07/16 20:00 97.2 126 28 124/69 95 10/07/16 16:00 76 10/07/16 15:19 97.3 96 22 108/63 94 10/07/16 12:00 97.4 90 15 104/60 95 10/07/16 12:00 80 I/O 10/07/16 10/07/16 10/07/16 10/08/16 10/08/16 10/08/16 07:00 15:00 23:00 07:00 15:00 23:00 Intake Total 0 ml 820 ml 120 ml Output Total 600 ml 2675 ml 600 ml Balance -600 ml -1855 ml -480 ml Intake Oral 0 ml 820 ml 120 ml IV Total 0 ml Output Urine Total 600 ml 2675 ml 600 ml # Bowel Movements 0 0 0 Result Diagram: 10/06/16 0427 10/06/16 0427 Objective Remarks GENERAL: Well-developed, well-nourished, in no acute distress. alert and orientated HEENT: Head is normocephalic without any lesions or masses noted. Facial features are symmetric. Eyes: Extraocular muscles are intact. Conjunctivae were clear. NECK: Supple without any masses. Trachea midline no deviation. No JVD, CARDIAC: Irregular rhythm, irregular rate. S1/S2 are heard. No murmurs gallops or rubs. LUNGS: Clear to auscultation bilaterally. No wheeze, rhonchi or rales. No use of accessory muscles on inspiration or expiration. ABDOMEN: Soft, nontender. Nondistended. Bowel sounds heard in all 4 quadrants. No organomegaly or masses. Negative rebound, negative guarding EXTREMITIES: 1+ pitting edema bilaterally, pulses are equal bilaterally. No cyanosis or clubbing NEUROLOGY: Mood and affect appear appropriate. Cranial nerves II through XII grossly intact. Moving all extremities, speech is clear Urinary Catheter: No Vascular Central Line Catheter: No A/P Assessment and Plan Atrial fibrillation with rapid ventricular response: Cardiac enzymes negative, Status post Cardizem drip , heart rate is mildly controlled on Lopressor. Heart [place] [address]. Cardiology consultation has been performed. Last 2-D echo with EF 50-55% (04/19/16). Repeat echocardiogram indicates systolic function was moderately reduced ejection fraction 3545 percent. Continue Pradaxa and continue treatment for hypothyroidism. Discussed with cardiology. Patient's condition likely related to noncompliance. Cardiology and myself for counseled patient on his fluid intake. Cardiology indicates that with the increase of Lopressor 100 mg twice daily if his rate is controlled he may be discontinued with outpatient follow-up. Acute on chronic systolic/diastolic congestive heart failure: BNP 959, change to Lasix 40 mg by mouth daily. I patient counseled extensively on fluid restriction. According to documentation patient has had close to 7.6 L negative fluid status. Counseled patient on compression stockings Hypertension, hyperlipidemia, anxiety: Losartan 100 mg was continued, after discussion with cardiology will decrease to losartan 25 mg because of the increase to Lopressor. Diabetes type 2: Last A1c 5.7, oral hypoglycemic agent was resumed, however patient is refusing at this time. Continue Accu-Cheks with sliding scale insulin. Patient has not required any insulin since being in the hospital. Chest x-ray showing congestion with bibasilar airspace disease: Currently afebrile and WBC wnl; patient completed Z-Pack as well as Medrol dose pack therefore will hold on starting any antibiotic. Reassess clinical course DVT prophylaxis: Pradaxa Written by Ashwin Delacruz PA-C, acting as scribe for Dr. Lundberg on 10/08/16 at 1400. The documentation accurately reflects the work and decisions performed face-to- face by Dr. Lundberg on 10/08/16 at 1400. Discharge Planning Discharge planning when heart rate controlled after medication adjustment. Could be as early as late this afternoon and hopefully by adilsonorrow morning Ashwin Delacruz Oct 08, 2016 09:14 Lakshmi Lundberg MD Oct 08, 2016 20:01
[2016-10-08] MEDS ORDERED: FURO40TA PO (09:17)
[2016-10-08] MEDS ORDERED: METO-309 PO (09:17)
[2016-10-08] MEDS ORDERED: COZA50TA PO (09:17)
[2016-10-08] MEDS ORDERED: POTA20TA5 PO (09:17)
--- NOTE | 2016-10-08 09:17 | HHI.DCPOC ---
Discharge Care Plan Diagnosis: (1) Congestive heart failure (2) Atrial fibrillation with rapid ventricular response Goals to Promote Your Health * To prevent worsening of your condition and complications * To maintain your health at the optimal level Directions to Meet Your Goals Take your medications as prescribed Follow your dietary instruction Follow activity as directed Keep your appointments as scheduled Take your immunizations and boosters as scheduled If your symptoms worsen call your PCP, if no PCP go to Urgent Care Center or Emergency Room Smoking is Dangerous to Your Health. Avoid second hand smoke Call the 24-hour hour crisis hotline for domestic abuse at Ashwin Delacruz Oct 08, 2016 09:17
[2016-10-08 12:00] VITALS: BP 107/66; PULSE 80; RESP 22; TEMP 97.6; O2SAT 96
--- NOTE | 2016-10-08 14:21 | HHI.DS ---
Discharge Summary Admission Date Oct 05, 2016 at 14:45 Discharge Date: Oct 08, 2016 Admitting Diagnosis atrial fibrillation with rvr (1) Atrial fibrillation with rapid ventricular response ICD Code: I48.91 (2) Acute on chronic diastolic (congestive) heart failure ICD Code: I50.33 Procedures Echocardiogram shows systolic function mildly reduced. Ejection fraction 3545 percent. Left and right atrium mildly dilated. Mild tricuspid regurgitation. Brief History - From Admission 66-year-old male with a history of hypertension, A. fib, hyperlipidemia, and diabetes presented to the ED for evaluation of worsening symptoms of shortness of breath associated with bilateral lower extremity swelling. Patient was seen by his mud logger today and was advised to seek medical attention to the ED. He reported that his symptoms started 2 weeks ago and was seen at urgent care she was prescribed Z-Matt and steroid dose for cold which he completed however had no improvement. He had at that time productive cough with clear sputum but no febrile episode. Patient smokes one pack per day has been smoking for the past 55 years. Currently denies any GI bleed, hemoptysis or hematuria. CBC/BMP: 10/06/16 0427 10/06/16 0427 Significant Findings Laboratory Tests Test 10/06/16 04:27 Mean Corpuscular Hemoglobin 31.7 % Concent (32.0-36.0) Blood Urea Nitrogen 25 MG/DL (7-18) Creatinine 1.40 MG/DL (0.60-1.30) Estimat Glomerular Filtration 51 ML/MIN (>89) Rate Imaging Last Impressions Chest X-Ray 10/05/16 1322 Signed Impressions: Service Date/Time: Wednesday, October 05, 2016 13:28 - CONCLUSION: Congestion and bibasilar airspace disease. Mild cardiomegaly. Wilbert Manning MD PE at Discharge GENERAL: Well-developed, well-nourished, in no acute distress. alert and orientated HEENT: Head is normocephalic without any lesions or masses noted. Facial features are symmetric. Eyes: Extraocular muscles are intact. Conjunctivae were clear. NECK: Supple without any masses. Trachea midline no deviation. No JVD, CARDIAC: Irregular rhythm, irregular rate. S1/S2 are heard. No murmurs gallops or rubs. LUNGS: Clear to auscultation bilaterally. No wheeze, rhonchi or rales. No use of accessory muscles on inspiration or expiration. ABDOMEN: Soft, nontender. Nondistended. Bowel sounds heard in all 4 quadrants. No organomegaly or masses. Negative rebound, negative guarding EXTREMITIES: 1+ pitting edema bilaterally, pulses are equal bilaterally. No cyanosis or clubbing NEUROLOGY: Mood and affect appear appropriate. Cranial nerves II through XII grossly intact. Moving all extremities, speech is clear Hospital Course 66-year-old male originally presented to hospital because of worsening symptoms shortness of breath, bilateral lower extremity edema. Patient did go to his mud logger the day of admission and was noticed to have congestive heart failure and atrial fibrillation. Patient was on Toprol 50 mg twice a day, Pradaxa for atrial fibrillation. However patient has significant tachycardia. Patient did have significant decompensated congestive heart failure. Patient does have underlying cardiomyopathy. Patient was admitted with IV diuresis with Lasix 40 mg IV every 12 hours. Patient diuresing well with over 7 L of fluid negative output. Patient continued to improve however his heart rate remained tachycardic up to 170s. Did adjust medications to Toprol 100 mg twice daily and decrease losartan to 25 mg daily. Patient's heart rate did improve with the increase medication. Blood pressure was stable. Case was discussed with mud logger daily. Dr. Gavin is managing the patient indicates that if his heart rate remained stable he can be discharged. Patient clinically stable this time. Will plan discharge accordingly. Epnb-bs-achd encounter performed with the patient on discharge day, as well as physical exam, summary of hospitalization course and postdischarge plan has been D/W the patient. D/W nurse D/W major case detective. Discharge medications reviewed and printed and signed, post discharge follow up visit with PCP and other specialist as well as Brief hospital course and discharge summary has been placed. Pt Condition on Discharge: Fair Discharge Disposition: Discharge Home Discharge Time: > 30 minutes Discharge Instructions DIET: Follow Instructions for: Heart Healthy Diet, Diabetic Diet Activities you can perform: Weight Bearing as Víctor Follow up Referrals: Cardiology - [address] Reyes PCP Follow-up - 1 Week New Medications: Furosemide (Furosemide) 40 Mg Tab 40 MG PO DAILY congestive heart failure #30 Ref 0 TAB Losartan (Cozaar) 50 Mg Tab 25 MG PO DAILY Blood Pressure Management #30 TAB Metoprolol Tartrate (Lopressor) 50 Mg Tab 100 MG PO BID atrial fibrillation #60 TAB Potassium Chloride Microencaps (Potassium Chloride Microencaps) 20 Meq Tab 20 MEQ PO DAILY congestive heart failure #30 TAB Continued Medications: Alprazolam (Alprazolam) 0.5 Mg Tab 0.5 MG PO TID PRN ANXIETY Ref 0 TAB Atorvastatin (Atorvastatin) 40 Mg Tab 40 MG PO HS Cholesterol Management #30 Ref 0 TAB Cholecalciferol (Vitamin D-3) 1,000 Unit Tab 2000 UNITS PO HS #30 Ref 0 TAB Dabigatran (Pradaxa) 150 Mg Cap 150 MG PO BID Blood Clot Prevention #60 Ref 0 CAP Hydrocodone-Acetaminophen (Hydrocodone-Acetaminophen) 10-325 mg Tab 1 TAB PO Q6H PRN PAIN #30 Ref 0 TAB Metformin (Metformin) 850 Mg Tab 850 MG PO BIDPC With meals Blood Sugar Management Ref 0 TAB Pantoprazole (Pantoprazole) 40 Mg Tab 40 MG PO DAILY Reflux #30 Ref 0 TAB Discontinued Medications: Losartan (Losartan) 100 Mg Tab 100 MG PO DAILY Blood Pressure Management #30 Ref 0 TAB Metoprolol Tartrate (Metoprolol Tartrate) 50 Mg Tab 50 MG PO BID #60 Ref 0 TAB Additional Information Written by Ashwin Delacruz PA-C, acting as scribe for Dr. Lundberg on 10/08/16 at 1415. The documentation accurately reflects the work and decisions performed face-to- face by Dr. Lundberg on 10/08/16 at 1415. Ashwin Delacruz Oct 08, 2016 14:21 Lakshmi Lundberg MD Oct 08, 2016 20:02
== END 2016-10-08 14:45 | disposition home or self-care (01) | DRG 292 ==
LOC: PHED 12:42 → PHEDA 14:45 → PHICU 16:02
PROVIDERS: ADMIT Hospitalist; ATTEND Hospitalist
DX: I50.43 Acute on chronic combined systolic (congestive) and diastolic (congestive) heart failure (principal); I42.9 Cardiomyopathy, unspecified; I48.91 Unspecified atrial fibrillation; I07.1 Rheumatic tricuspid insufficiency; E78.00 Pure hypercholesterolemia, unspecified; M19.90 Unspecified osteoarthritis, unspecified site; F17.210 Nicotine dependence, cigarettes, uncomplicated; N28.9 Disorder of kidney and ureter, unspecified; E11.9 Type 2 diabetes mellitus without complications; I10 Essential (primary) hypertension; E78.5 Hyperlipidemia, unspecified; F12.90 Cannabis use, unspecified, uncomplicated; E03.9 Hypothyroidism, unspecified; Z79.01 Long term (current) use of anticoagulants; F41.9 Anxiety disorder, unspecified; Z79.84 Long term (current) use of oral hypoglycemic drugs; I25.2 Old myocardial infarction; Z91.19 Patient's noncompliance with other medical treatment and regimen; Z23 Encounter for immunization
CPT/HCPCS: 71010; 80048; 80053; 82550; 82948; 83880; 84443; 84484; 85025; 85027; 85610; 85730; 93005; 93306; 96374; 96375; J1940

== ENCOUNTER 2017-01-21 19:50 | Emergency (ER) | payer MEDICARE ==
[~2017-01-21] VITALS: Ht 200.7 cm; Wt 117.7 kg
[~2017-01-21 19:50] MED LIST changes: +ALPR0.5T3 PO; -ATOR40TA PO; +ATOR40TA16 PO; +COZA50TA PO; -DABI150 PO; +FURO40TA PO; -GLUC1000 PO; +HYDR-3583 PO; -HYDR-4197; -LOSA100T PO; -MELO15; +METF850T PO; +METO-309 PO; -METO50TA PO; -NORC10TA2 PO; -PANT40IN3 PO; +PANT40TA3 PO; +POTA20TA5 PO; +PRAD150C PO; +VITA10003 PO; -XANA0.5T PO
[2017-01-21 20:00] VITALS: BP 104/70; PULSE 92; RESP 20; TEMP 97.3; O2SAT 99
[2017-01-21] MEDS ORDERED: COUM3TAB PO (20:14)
[2017-01-21] MEDS ORDERED: COUM6TAB PO (20:14)
[2017-01-21] MEDS ORDERED: VITA2000 PO (20:15)
--- NOTE | 2017-01-21 20:16 | PD ---
HPI . Abscess, left buttock Chief Complaint: Skin Problem Time Seen by Provider: 20:10 Travel History International Travel<30 days: No Contact w/Intl Traveler<30days: No Traveled to known affect area: No History of Present Illness HPI Patient presents with the chief complaint of an abscess on his left buttock. It has been there for 9 days. It has spontaneously drained. He reports no pain. He has not run a fever. No modifying factors. PFSH Past Medical History Hx Anticoagulant Therapy: Yes (COUMADIN) Arthritis: Yes Atrial Fibrillation: Yes Autoimmune Disease: No Anxiety: Yes Heart Rhythm Problems: Yes (This visit) Cardiovascular Problems: Yes High Cholesterol: Yes Diabetes: No (DENIES) Endocrine: No (PT DENIES HAVING DIABETES) Genitourinary: No Immune Disorder: No Musculoskeletal: Yes (pinched nerves, degenerative changes. ) Reproductive: Yes Respiratory: No Past Surgical History Abdominal Surgery: No Cardiac Surgery: No Endocrine Surgery: No Eye Surgery: Yes (right eye surgery) Genitourinary Surgery: No Gynecologic Surgery: No Oral Surgery: Yes (implants) Thoracic Surgery: No Other Surgery: Yes Social History Alcohol Use: No Tobacco Use: Yes (1 ppd or more) Substance Use: No Allergies-Medications (Allergen,Severity, Reaction): Coded Allergies: No Known Allergies (Unverified , 01/21/17) Reported Meds & Prescriptions Reported Meds & Active Scripts Active Bactrim DS (Sulfamethoxazole-Trimethoprim) 800-160 Mg Tab 1 Tab PO BID Furosemide 40 Mg Tab 40 Mg PO DAILY Potassium Chloride Microencaps 20 Meq Tab 20 Meq PO DAILY Lopressor (Metoprolol Tartrate) 50 Mg Tab 100 Mg PO BID Reported Vitamin D3 (Cholecalciferol) 2,000 Unit Cap 2,000 Units PO HS Coumadin (Warfarin) 6 Mg Tab 6 Mg PO EVERY OTHER DAY Coumadin (Warfarin) 3 Mg Tab 3 Mg PO EVERY OTHER DAY Pantoprazole (Pantoprazole Sodium) 40 Mg Tab 40 Mg PO DAILY Hydrocodone-Acetaminophen 10-325 mg Tab 1 Tab PO Q6H PRN Atorvastatin (Atorvastatin Calcium) 40 Mg Tab 40 Mg PO HS Alprazolam 0.5 Mg Tab 0.5 Mg PO TID PRN Review of Systems Except as stated in HPI: all other systems reviewed are Neg General / Constitutional: No: Fever, Chills Skin: Positive Lesions Physical Exam Narrative GENERAL: Awake and alert and in no acute distress. SKIN: Warm and dry. He has a draining abscess on the left buttock. HEAD: Atraumatic. Normocephalic. EYES: Pupils equal and round. NECK: Trachea midline. CARDIOVASCULAR: Regular rate and rhythm. RESPIRATORY: No accessory muscle use. MUSCULOSKELETAL: No obvious deformities. No edema. NEUROLOGICAL: Awake and alert. No obvious cranial nerve deficits. Motor grossly within normal limits. Normal speech. PSYCHIATRIC: Appropriate mood and affect; insight and judgment normal. Data Data Last Documented VS Vital Signs Date Time Temp Pulse Resp B/P Pulse Ox O2 Delivery O2 Flow Rate FiO2 01/21/17 20:00 97.3 92 20 104/70 99 Orders Lidocaine 1% Inj (50 Ml) (Xylocaine 1% I (01/21/17 20:30) Lidocaine Pf 1% Inj (Xylocaine-Mpf 1% In (01/21/17 20:24) Wound Care (01/21/17 20:52) MDM Medical Decision Making Medical Screen Exam Complete: Yes Emergency Medical Condition: Yes Differential Diagnosis My differential diagnosis includes but is not limited to localized wound infection, cellulitis, abscess Narrative Course This patient presents with an abscess on his left buttock. It needs to be opened up so they can drain adequately. I will do an I&D. Procedures Procedure Narrative INCISION AND DRAINAGE OF ABSCESS: The area was prepped and was sterilely draped. A subcutaneous wheal of 1 % Xylocaine without epi with a total number 4 mL was used to anesthetize the area properly. A number 11 scalpel was used to make a 1-cm incision across the area of the abscess. The abscess was drained and complex loculations were broken down. There was cystic material in the wound. Half inch iodoform packing was placed in the wound. Sterile dressing applied. Patient advised to have packing removed in two days. Diagnosis Primary Impression: Abscess of left buttock Patient Instructions: Abscess Incision and Drainage (DC), General Instructions Additional Instructions: Return to the emergency department in 2 days for wound check Med/Other Pt SpecificInfo: Prescription(s) given Scripts Sulfamethoxazole-Trimethoprim (Bactrim DS)800-160 Mg Tab1 Tab PO BID #20 TAB Ref 0 Prov:Jenna Moreno MD 01/21/17 Disposition: 01 DISCHARGE HOME Condition: Stable Jenna Moreno MD Jan 21, 2017 20:16
[2017-01-21] MEDS ORDERED: LIDOCAINE HCL 1% PF 30 ML VIAL ONE (20:24)
[2017-01-21] MEDS ORDERED: BACT800T5 PO (20:25)
[2017-01-21] MEDS ORDERED: LIDOCAINE HCL 1% 50 ML VIAL INFIL ONE (20:30)
== END 2017-01-21 21:17 | disposition home or self-care (01) ==
LOC: PHED 19:50
DX: I48.91 Unspecified atrial fibrillation (principal); L02.31 Cutaneous abscess of buttock; Z79.01 Long term (current) use of anticoagulants; M19.90 Unspecified osteoarthritis, unspecified site; E78.00 Pure hypercholesterolemia, unspecified; F17.210 Nicotine dependence, cigarettes, uncomplicated
CPT/HCPCS: 10061

== ENCOUNTER 2017-01-23 23:21 | Emergency (ER) | payer SELFPAY ==
[~2017-01-23] VITALS: Ht 200.7 cm; Wt 119.0 kg
[~2017-01-23 23:21] MED LIST changes: +BACT800T5 PO; +COUM3TAB PO; +COUM6TAB PO; -COZA50TA PO; -METF850T PO; -PRAD150C PO; -VITA10003 PO; +VITA2000 PO
[2017-01-23 23:35] VITALS: BP 120/81; PULSE 84; RESP 16; TEMP 97.6; O2SAT 100
--- NOTE | 2017-01-24 00:04 | PD ---
HPI Chief Complaint: Wound/Suture/Staple Re-Check Time Seen by Provider: 00:03 Travel History International Travel<30 days: No Contact w/Intl Traveler<30days: No Traveled to known affect area: No History of Present Illness HPI The patient is a 66-year-old male that comes in for abscess recheck, he had an incision and drainage done on the first of this month. Apparently the abscess was packed with iodoform gauzes and it is time to remove the gauze. PFSH Past Medical History Hx Anticoagulant Therapy: Yes (COUMADIN) Arthritis: Yes Atrial Fibrillation: Yes Autoimmune Disease: No Anxiety: Yes Heart Rhythm Problems: Yes Cardiovascular Problems: Yes High Cholesterol: Yes Diabetes: No (DENIES) GERD: Yes Genitourinary: No Herniated Disk: Yes Hypertension: Yes Immune Disorder: No Kidney Stones: Yes Musculoskeletal: Yes (pinched nerves, degenerative changes. ) Reproductive: Yes Respiratory: No Myocardial Infarction: Yes Ulcer: Yes Past Surgical History Abdominal Surgery: No Cardiac Surgery: No Endocrine Surgery: No Eye Surgery: Yes (right eye surgery) Genitourinary Surgery: No Gynecologic Surgery: No Oral Surgery: Yes (implants) Thoracic Surgery: No Other Surgery: Yes Social History Alcohol Use: No Tobacco Use: Yes (1 ppd or more) Substance Use: No Allergies-Medications (Allergen,Severity, Reaction): Coded Allergies: No Known Allergies (Unverified , 01/23/17) Reported Meds & Prescriptions Reported Meds & Active Scripts Active Bactrim DS (Sulfamethoxazole-Trimethoprim) 800-160 Mg Tab 1 Tab PO BID Furosemide 40 Mg Tab 40 Mg PO DAILY Potassium Chloride Microencaps 20 Meq Tab 20 Meq PO DAILY Lopressor (Metoprolol Tartrate) 50 Mg Tab 100 Mg PO BID Reported Vitamin D3 (Cholecalciferol) 2,000 Unit Cap 2,000 Units PO HS Coumadin (Warfarin) 6 Mg Tab 6 Mg PO EVERY OTHER DAY Coumadin (Warfarin) 3 Mg Tab 3 Mg PO EVERY OTHER DAY Pantoprazole (Pantoprazole Sodium) 40 Mg Tab 40 Mg PO DAILY Hydrocodone-Acetaminophen 10-325 mg Tab 1 Tab PO Q6H PRN Atorvastatin (Atorvastatin Calcium) 40 Mg Tab 40 Mg PO HS Alprazolam 0.5 Mg Tab 0.5 Mg PO TID PRN Review of Systems Except as stated in HPI: all other systems reviewed are Neg Physical Exam Narrative GENERAL: Well-nourished, well-developed patient in no apparent distress. His vital signs are normal. SKIN: Focused skin assessment warm/dry. The abscess appears to have been draining well, there is no fluctuance and no pus in the abscess cavity. HEAD: Normocephalic. EYES: No scleral icterus. No injection or drainage. NECK: Supple, trachea midline. No JVD or lymphadenopathy. CARDIOVASCULAR: Regular rate and rhythm without murmurs, gallops, or rubs. RESPIRATORY: Breath sounds equal bilaterally. No accessory muscle use. GASTROINTESTINAL: Abdomen soft, non-tender, nondistended. MUSCULOSKELETAL: No cyanosis, or edema. BACK: Nontender without obvious deformity. No CVA tenderness. Data Data Last Documented VS Vital Signs Date Time Temp Pulse Resp B/P Pulse Ox O2 Delivery O2 Flow Rate FiO2 01/23/17 23:35 97.6 84 16 120/81 100 MDM Medical Decision Making Medical Screen Exam Complete: Yes Emergency Medical Condition: Yes Medical Record Reviewed: Yes Differential Diagnosis Abscess healing well, abscess recurring, abscess with development of cellulitis Narrative Course There is no evidence of development of cellulitis or recurrent abscess. The abscess appears to be healing well. Diagnosis Primary Impression: Abscess after procedure Additional Instructions: As we discussed, sit in a tub twice daily for 4-5 days and then once daily. Warm water should be used and tubtap water is fine. Sit in the tub at least 30 minutes at a time. Med/Other Pt SpecificInfo: No Change to Meds Disposition: 01 DISCHARGE HOME Condition: Stable Jonas Delacruz MD Jan 24, 2017 00:04
== END 2017-01-24 00:20 | disposition home or self-care (01) ==
LOC: PHED 23:21
DX: Z48.01 Encounter for change or removal of surgical wound dressing (principal); L02.31 Cutaneous abscess of buttock; I48.91 Unspecified atrial fibrillation; E78.00 Pure hypercholesterolemia, unspecified; I10 Essential (primary) hypertension; K21.9 Gastro-esophageal reflux disease without esophagitis; I25.2 Old myocardial infarction; F17.210 Nicotine dependence, cigarettes, uncomplicated; Z79.01 Long term (current) use of anticoagulants; Z87.442 Personal history of urinary calculi
CPT/HCPCS: 99281